=== PATIENT | female | born 1940 | race Caucasian/White ===

== ENCOUNTER 2020-06-18 15:32 | Day surgery (SDCO) | payer MEDICARE ==
[2020-06-18 16:12] LABS: BASOPHIL 0.3 % (0-2); EOSINOPHIL 0.1 % (0-7); HCT 41.8 % (37.0-47.0); HGB 13.9 g/dl (12.5-16.0); LYMPHOCYTE 4.8 % (15-48); MCH 29.2 pg (25.0-31.0); MCHC 33.3 g/dL (32.0-36.0); MCV 87.8 fL (78.0-100.0); MONOCYTE 8.1 % (0-12); NEUTROPHIL 86.2 % (41-80); NRBC 0; PLT 223 K/uL (150-400); RBC 4.76 M/uL (4.20-5.40); RDW 13.5 % (11.5-14.0); WBC 11.7 K/uL (4.0-10.5)
[2020-06-18 16:29] LABS: INR 1.14 (0.9-1.2); PROTHROMBIN TIME 13.9 SECONDS (11.4-13.6); PTT 30.3 SECONDS (22.2-34.7)
[2020-06-18 16:49] LABS: LACTIC ACID 0.9 mmol/L (0.4-1.9)
[2020-06-18 16:56] LABS: ALBUMIN 3.3 g/dL (3.4-5.0); BILIRUBIN - TOTAL 0.5 mg/dL (0.2-1.0); BUN/CREAT RATIO (CALC) 15.5 RATIO; CREATININE 1.03 mg/dL (0.51-0.95); GLOBULIN (CALCULATION) 3.8 g/dL; MAGNESIUM 1.8 mg/dL (1.8-2.4); POTASSIUM 3.7 mmol/L (3.5-5.1); TOTAL PROTEIN 7.1 g/dL (6.4-8.2)
[2020-06-18 18:21] LABS: BILIRUBIN NEGATIVE (NEGATIVE); BLOOD 1+ Ery/uL (NEGATIVE); CLARITY CLEAR (CLEAR); COLOR YELLOW (YELLOW); GLUCOSE (U) NORMAL (NORMAL); LEUKOCYTES NEGATIVE Leu/uL (NEGATIVE); NITRITE NEGATIVE (NEGATIVE); PROTEIN NEGATIVE (NEGATIVE); SPECIFIC GRAVITY 1.025 (1.001-1.030); UROBILINOGEN 0.2 mg/dL (0.2-1.0); pH 5.5 (5.0-9.0)
[2020-06-18 18:29] LABS: SQUAMOUS EPITHELIAL CELLS RARE
[2020-06-18] MEDS ORDERED: ALENDRONATE SOD70 MG PO (22:01)
[2020-06-18] MEDS ORDERED: ASPIRIN81 MG PO (22:02)
[2020-06-18] MEDS ORDERED: CEPHALEXIN500 MG PO (22:03)
[2020-06-18] MEDS ORDERED: CARVEDILOL6.25 MG PO (22:03)
[2020-06-18] MEDS ORDERED: DONEPEZIL HCL10 MG PO (22:07)
[2020-06-18] MEDS ORDERED: FLUTICASONE-SA1 EAC4 (22:08)
[2020-06-18] MEDS ORDERED: MELATONIN-LEMO1 EACH PO (22:09)
[2020-06-18] MEDS ORDERED: MELOXICAM7.5 MG PO (22:10)
[2020-06-18] MEDS ORDERED: LISINOPRIL20 MG PO (22:11)
[2020-06-18] MEDS ORDERED: ROSUVASTATIN CA20 MG PO (22:11)
[2020-06-18] MEDS ORDERED: MONTELUKAST SOD10 MG PO (22:12)
[2020-06-18] MEDS ORDERED: SERTRALINE HCL25 MG PO (22:12)
[2020-06-18] MEDS ORDERED: LEVOTHYROXINE75 MC1 PO (22:13)
[2020-06-18] MEDS ORDERED: DONEPEZIL HCL5 MG PO (22:13)
[2020-06-19 06:23] LABS: BASOPHIL 0.4 % (0-2); EOSINOPHIL 0 % (0-7); HCT 43.5 % (37.0-47.0); HGB 14.5 g/dl (12.5-16.0); MCH 29.1 pg (25.0-31.0); MCHC 33.3 g/dL (32.0-36.0); MCV 87.3 fL (78.0-100.0); MPV 11.6 fL (6.0-9.5); NRBC 0; PLT 225 K/uL (150-400); RBC 4.98 M/uL (4.20-5.40); WBC 6.8 K/uL (4.0-10.5)
[2020-06-19 06:25] LABS: NEUTROPHIL 81.2 % (41-80)
[2020-06-19 06:36] LABS: BUN/CREAT RATIO (CALC) 25.8 RATIO; CREATININE 0.93 mg/dL (0.51-0.95); POTASSIUM 3.1 mmol/L (3.5-5.1)
--- NOTE | 2020-06-19 12:51 | NUR ---
spoke to both jluis hurt (sister) and marcela (helio) bethel- (sister) both siter on the same page that they feel she is not able to go home and be safe they are thinking she will need posiable assited living memory care and want to look into [facility] in [facility] and some facilities in [facility] as well. choice letter signed.
--- NOTE | 2020-06-19 15:37 | NUR ---
06/28/20 A follow-up visist was made with Elena Costa, sister, from She Aye's visit. Information was sent to [facility] per family request. Ms. Costa was provided with the telephone #s to [facility]yl[facility], Roselyn Blanchard, and Wilmar Verma. She was informed that family will need to contact these agencies because they are Assisted Living opposed to . Ms. Costa spoke with [facility]. Ms. Costa reports plans for Ms. Newberry to return to her own home with 24 hour care or to go to one of the sister's homes. - They will work on placement to Assited Living or Personal Care from home. - [facility] was selected, affliation explained. Barriers to the HHR are that Ms. Newberry is between PCP. She has an appointment schedule for August [address] Nj Bridges. Her former PCP was Dr. Camp. [facility] will attempt to get orderes from Dr. Camp. Ms. Costa is aware of the barrier. - A report was given to CHET Madsen RN and Dr. Diaz. - Please notifiy [facility] with discharging address, [phone].
[2020-06-20 05:52] LABS: BASOPHIL 1.2 % (0-2); EOSINOPHIL 1.9 % (0-7); HCT 36.5 % (37.0-47.0); HGB 11.9 g/dl (12.5-16.0); LYMPHOCYTE 20.8 % (15-48); MCH 28.7 pg (25.0-31.0); MCHC 32.6 g/dL (32.0-36.0); MCV 88.2 fL (78.0-100.0); MPV 11.1 fL (6.0-9.5); NEUTROPHIL 51.9 % (41-80); NRBC 0; PLT 182 K/uL (150-400); RBC 4.14 M/uL (4.20-5.40); WBC 5.2 K/uL (4.0-10.5)
[2020-06-20 06:00] LABS: MONOCYTE 22.9 % (0-12)
[2020-06-20 06:15] LABS: BUN/CREAT RATIO (CALC) 27.4 RATIO; CREATININE 0.84 mg/dL (0.51-0.95); POTASSIUM 3.8 mmol/L (3.5-5.1)
[2020-06-21 06:00] LABS: BASOPHIL 0.6 % (0-2); EOSINOPHIL 2.8 % (0-7); HCT 33.9 % (37.0-47.0); HGB 11.3 g/dl (12.5-16.0); LYMPHOCYTE 26.5 % (15-48); MCHC 33.3 g/dL (32.0-36.0); MCV 86.9 fL (78.0-100.0); MPV 11.2 fL (6.0-9.5); NEUTROPHIL 49.1 % (41-80); NRBC 0; PLT 202 K/uL (150-400); RDW 14.1 % (11.5-14.0); WBC 4.7 K/uL (4.0-10.5)
[2020-06-21 06:12] LABS: MONOCYTE 20.6 % (0-12)
[2020-06-21 06:25] LABS: BUN/CREAT RATIO (CALC) 15.7 RATIO; CREATININE 0.7 mg/dL (0.51-0.95); POTASSIUM 3.8 mmol/L (3.5-5.1)
[2020-06-21] MEDS ORDERED: VANCOMYCIN HCL1 GM PO (07:57)
--- NOTE | 2020-06-21 14:34 | NUR ---
1435 PT DISCHARGED, DISCHARGE ORDERS DISCUSSED WITH PT AND SISTER, THEY VERBALIZED UNDERSTANDING. PT TRANSPORTED VIA WHEELCHAIR TO SISTERS CAR. PT HAS NO COMPLAINTS AND TOLERATED WELL.
== END 2020-06-21 14:30 | disposition home or self-care (01) ==
LOC: FER 15:32 → FTCU 19:18
PROVIDERS: Allergy & Immunology Allergy; Emergency Medicine; Nurse Practitioner; ADMIT Internal Medicine
DX: A04.72 Enterocolitis due to Clostridium difficile, not specified as recurrent (principal); Z20.822 Contact with and (suspected) exposure to COVID-19
CPT/HCPCS: 36415; 70450; 70551; 71045; 80048; 80053; 81001; 82550; 82962; 83605; 83735; 84443; 84484; 85025; 85610; 85730; 87045; 87046; 87088; 87205; 87324; 87449; 93005; 97110; 97116; 97162; 97166; 97530; 97530-GP; 97535; G0378; J1650; J7030; J7120; U0002